=== PATIENT | female | born 1990 | race Caucasian/White ===

== ENCOUNTER 2018-04-29 03:44 | Emergency (ER) | payer BC ==
[~2018-04-29] VITALS: Ht 170.2 cm; Wt 56.4 kg
[~2018-04-29 03:44] MED LIST: ADVIL200 MG PO; MONONESSA 35 MC1 TA1 PO; PERCOCET 325 MG1 TA2 PO; TYLENOL 500MG500 MG PO; ZOFRAN 4MG T4 MG/TAB PO
[2018-04-29 03:48] VITALS: TEMP 97.8
[2018-04-29 04:14] LABS: BASO # 0.1 (0.0-0.2); BASO % 0.6 % (0.0-2.0); EOS # 0.4 (0.0-0.7); EOS % 4.3 % (0-4.0); GRAN # 6.1 (1.4-6.5); GRAN % 67.9 % (42.2-75.2); HEMATOCRIT 37.2 % (37.0-47.0); HEMOGLOBIN 12.1 g/dl (12.5-16.0); LYMPH # 1.9 (1.2-3.4); LYMPH % 20.9 % (20.0-51.0); MEAN CELL VOLUME 88 fl (80.0-100.0); MEAN CORPUSCULAR HEMOGLOBIN 29 pg (27.0-31.0); MEAN CORPUSCULAR HGB CONC 33 g/dl (33.0-37.0); MONO # 0.5 (0.1-0.6); MONO % 6.1 % (1.7-9.3); PLATELET COUNT 255 K/mm3 (130-400); RED BLOOD COUNT 4.21 M/mm3 (4.10-5.30); REDCELL DISTRIBUTION WIDTH-CV 12.9 % (11.5-14.5)
[2018-04-29 04:24] LABS: ALBUMIN 4.3 gm/dL (3.5-5.0); BILIRUBIN,TOTAL 0.3 mg/dL (0.0-1.0); CALCIUM 9.2 mg/dL (8.4-10.2); CREATININE, serum 0.53 mg/dL (0.52-1.25); POTASSIUM 3.8 mmol/L (3.4-5.0); TOTAL PROTEIN 7.8 gm/dL (6.4-8.2)
[2018-04-29 04:45] LABS: COLLECTION METHOD CLEAN CATCH
[2018-04-29 05:00] LABS: MUCOUS Present /lpf; PH 6 (5-8); SQUAMOUS EPITHELIAL 0-2 /hpf; URINE APPEARANCE Hazy; URINE BACTERIA None Seen /hpf; URINE BILIRUBIN Negative (NEGATIVE); URINE BLOOD 3+ (NEGATIVE); URINE COLOR Yellow; URINE GLUCOSE Negative (NEGATIVE); URINE KETONE Negative (NEGATIVE); URINE LEUKOCYTE ESTERASE Negative (NEGATIVE); URINE NITRATE Negative (NEGATIVE); URINE PROTEIN(semi-quant) 1+ (NEGATIVE); URINE RBC >50 /hpf; URINE UROBILINOGEN Negative (NEGATIVE)
[2018-04-29] MEDS ORDERED: ASPIRIN 81M81 MG/TA2 PO (05:03)
[2018-04-29] MEDS ORDERED: PROMETRIUM200 M1 PO (05:03)
[2018-04-29] MEDS ORDERED: PRENATAL VITAMI1 TA3 PO (05:05)
[2018-04-29 07:35] VITALS: BP 114/82; PULSE 72
== END 2018-04-29 07:36 | disposition home or self-care (01) ==
LOC: COL.ER 03:44
PROVIDERS: Emergency Medicine
DX: O46.91 Antepartum hemorrhage, unspecified, first trimester (principal); Z3A.01 Less than 8 weeks gestation of pregnancy; Z98.890 Other specified postprocedural states; Z90.49 Acquired absence of other specified parts of digestive tract; Z79.82 Long term (current) use of aspirin